=== PATIENT | male | born 2000 | race African-American/Black ===

== ENCOUNTER 2025-04-10 22:48 | Emergency (ER) | payer OTHER ==
[~2025-04-10] VITALS: Ht 180.3 cm; Wt 91.0 kg
[2025-04-10 22:59] VITALS: TEMP 36.7; O2SAT 98
[2025-04-10] MEDS: IBUPROFEN 600MG TABLET PO ONE (23:20)
[2025-04-10] MEDS ORDERED: IBUP-2028 MT (23:58)
[2025-04-11 00:12] VITALS: BP 123/64; PULSE 79; RESP 18; O2SAT 99
== END 2025-04-11 00:14 | disposition home or self-care (01) ==
LOC: ER 22:48
DX: R07.89 Other chest pain (principal); F31.9 Bipolar disorder, unspecified; F41.9 Anxiety disorder, unspecified; K21.9 Gastro-esophageal reflux disease without esophagitis; Z79.1 Long term (current) use of non-steroidal anti-inflammatories (NSAID); Z79.899 Other long term (current) drug therapy
CPT/HCPCS: 71045; 93005; 99283